=== PATIENT | female | born 1990 | race Caucasian/White ===

== ENCOUNTER 2022-05-05 06:01 | Inpatient (IN) | payer BC ==
[2022-05-05] MEDS ORDERED: Celecoxib 200 MG Cap PO ONE (06:30)
[2022-05-05] MEDS ORDERED: Scopolamine 1.5 MG Transdermal Patch TOP SCH (07:00)
[2022-05-05] MEDS ORDERED: Acetaminophen 500 MG Tab PO ONE (07:00)
[2022-05-05] MEDS ORDERED: cefOXitin 2 GM in Sodium Chloride 0.9% 50 ML IV ONE (07:00)
[2022-05-05] MEDS ORDERED: Dextrose 5%-Lactated Ringers 1,000 ML IV SCH (07:00)
[2022-05-05] MEDS ORDERED: cefOXitin 2 GM Vial ONE (07:01)
[2022-05-05 07:02] LABS: ESTIMATED GFR 78 mL/min (>60)
[2022-05-05] MEDS ORDERED: Succinylcholine 200 MG/10 ML MDV ONE (07:35)
[2022-05-05] MEDS ORDERED: Dexamethasone 4 MG/ML SDV ONE (07:35)
[2022-05-05] MEDS ORDERED: Propofol 200 MG/20 ML SDV ONE (07:35)
[2022-05-05] MEDS ORDERED: Neostigmine Methylsulfate 1 MG/ML 5 ML Syringe ONE (07:35)
[2022-05-05] MEDS ORDERED: Rocuronium 50 MG/5 ML Vial ONE ×2 (07:35→09:05)
[2022-05-05] MEDS ORDERED: Ondansetron 4 MG/2 ML SDV ONE (07:35)
[2022-05-05] MEDS ORDERED: Glycopyrrolate 0.2 MG/ML 5 ML MDV ONE (07:35)
[2022-05-05] MEDS ORDERED: fentaNYL 250 MCG/5 ML SDV ONE (08:55)
[2022-05-05] MEDS ORDERED: Labetalol 20 MG/4 ML Syringe ONE (10:05)
[2022-05-05] MEDS ORDERED: Glucagon,Human Recombinant 1 MG Vial IM PRN ×2 (11:46→13:00)
[2022-05-05] MEDS ORDERED: 50% Dextrose in Water 50 ML Syringe IVPUSH PRN ×2 (11:46→13:00)
[2022-05-05] MEDS ORDERED: fentaNYL 50 MCG/ML SDV IVPUSH ONE (11:51)
[2022-05-05] MEDS ORDERED: hydrOXYzine HCL 100 MG/2 ML SDV IM ONE (11:51)
[2022-05-05] MEDS ORDERED: Insulin Lispro 100 Unit/ML 3 ML KwikPen SUBCUT ONE (12:00)
[2022-05-05] MEDS ORDERED: Cyclobenzaprine 10 MG Tab PO PRN (12:51)
[2022-05-05] MEDS ORDERED: traMADol 50 MG Tab PO PRN (13:00)
[2022-05-05] MEDS ORDERED: hydrOXYzine HCL 100 MG/2 ML SDV IM PRN (13:00)
[2022-05-05] MEDS ORDERED: HYDROmorphone 1 MG/ML Syringe IV PRN (13:00)
[2022-05-05] MEDS ORDERED: Labetalol 20 MG/4 ML Syringe IVPUSH PRN (13:00)
[2022-05-05] MEDS ORDERED: diphenhydrAMINE 50 MG/ML SDV IVPUSH PRN (13:00)
[2022-05-05] MEDS ORDERED: Metoclopramide 10 MG/2 ML SDV IVPUSH PRN (13:00)
[2022-05-05] MEDS ORDERED: HYDROmorphone 0.5 MG/0.5 ML Syringe IVPUSH PRN (13:00)
[2022-05-05] MEDS ORDERED: oxyCODONE 5 MG Tab PO PRN (13:00)
[2022-05-05] MEDS ORDERED: Acetaminophen 500 MG Tab PO PRN (13:00)
[2022-05-05] MEDS ORDERED: Ondansetron 4 MG/2 ML SDV IVPUSH PRN (13:00)
[2022-05-05] MEDS: Lactated Ringers 1,000 ML IV SCH (13:57)
[2022-05-05] MEDS ORDERED: Pantoprazole 40 MG Vial IVPUSH SCH (14:00)
[2022-05-05] MEDS: Heparin Sodium 5,000 Units/ML Vial SUBCUT SCH ×2 (15:16→23:01)
[2022-05-05] MEDS ORDERED: Ketamine 500 MG/5 ML MDV IV SCH (16:00)
[2022-05-05] MEDS ORDERED: Ketamine 19 MG in Sodium Chloride 0.9% 19.81 ML IV SCH (16:00)
[2022-05-05] MEDS: MVI, Adult with Vitamin K 10 ML, Thiamine 200 MG, Zinc/Copper/Manganese/Selenium 1 ML i... IV SCH ×4 (16:36)
[2022-05-05] MEDS: cefOXitin 2 GM in Sodium Chloride 0.9% 50 ML IV SCH ×2 (16:38→22:01)
[2022-05-05] MEDS: Acetaminophen 500 MG Tab PO SCH ×2 (16:40→23:02)
[2022-05-05] MEDS: Insulin Lispro 100 Unit/ML 3 ML KwikPen SUBCUT SCH ×2 (16:41→21:58)
[2022-05-05] MEDS: Lisinopril 10 MG Tab PO SCH (21:59)
[2022-05-05] MEDS: atorvaSTATin 20 MG Tab PO SCH (22:00)
[2022-05-06] MEDS ORDERED: Iopamidol 612 MG/ML 50 ML SDV PO STA (02:42)
[2022-05-06] MEDS: cefOXitin 2 GM in Sodium Chloride 0.9% 50 ML IV SCH ×4 (03:43→22:54)
[2022-05-06] MEDS: Insulin Lispro 100 Unit/ML 3 ML KwikPen SUBCUT SCH ×4 (04:38→22:37)
[2022-05-06] MEDS ORDERED: Ondansetron 4 MG Tab.DIS PO PRN (07:40)
[2022-05-06] MEDS: Heparin Sodium 5,000 Units/ML Vial SUBCUT SCH ×3 (08:00→23:01)
[2022-05-06] MEDS: Acetaminophen 500 MG Tab PO SCH ×3 (08:00→23:00)
[2022-05-06] MEDS: buPROPion 150 MG Tab.ER PO SCH (08:01)
[2022-05-06] MEDS: Celecoxib 200 MG Cap PO SCH ×2 (08:01→21:34)
[2022-05-06] MEDS: Metoprolol Succinate 25 MG Tab.ER PO SCH (08:01)
[2022-05-06] MEDS: SCOPOLAMINE PATCH CHECK TOP SCH (08:01)
[2022-05-06] MEDS: Lactated Ringers 1,000 ML IV SCH (10:39)
[2022-05-06] MEDS ORDERED: Pantoprazole 40 MG Tab.CR PO SCH (11:30)
[2022-05-06] MEDS ORDERED: Calcium Carbonate 500 MG Tab.Chew PO PRN (14:18)
[2022-05-06] MEDS: MVI, Adult with Vitamin K 10 ML, Thiamine 200 MG, Zinc/Copper/Manganese/Selenium 1 ML i... IV SCH ×4 (16:09)
[2022-05-06] MEDS: Pantoprazole 40 MG Tab.CR PO SCH (16:12)
[2022-05-06] MEDS: Lisinopril 10 MG Tab PO SCH (21:34)
[2022-05-06] MEDS: atorvaSTATin 20 MG Tab PO SCH (21:34)
[2022-05-07] MEDS: Insulin Lispro 100 Unit/ML 3 ML KwikPen SUBCUT SCH (04:20)
[2022-05-07] MEDS: Acetaminophen 500 MG Tab PO SCH (07:10)
[2022-05-07] MEDS: Pantoprazole 40 MG Tab.CR PO SCH (07:10)
[2022-05-07] MEDS: Heparin Sodium 5,000 Units/ML Vial SUBCUT SCH (07:11)
[2022-05-07] MEDS: Metoprolol Succinate 25 MG Tab.ER PO SCH (08:06)
[2022-05-07] MEDS: buPROPion 150 MG Tab.ER PO SCH (08:06)
[2022-05-07] MEDS: SCOPOLAMINE PATCH CHECK TOP SCH (08:06)
[2022-05-07] MEDS: Celecoxib 200 MG Cap PO SCH (08:06)
[2022-05-07] MEDS ORDERED: Cyanocobalamin (Vitamin B12) 1,000 MCG/ML SDV IM ONE (09:00)
== END 2022-05-07 08:43 | disposition home or self-care (01) | DRG 403 ==
LOC: JP.MS 06:01
PROVIDERS: ADMIT Surgery; ATTEND Surgery
PROC: 0D194ZB Bypass Duodenum to Ileum, Percutaneous Endoscopic Approach (ICD-10-PCS; principal; 2022-05-05)
PROC: 0FB24ZX Excision of Left Lobe Liver, Percutaneous Endoscopic Approach, Diagnostic (ICD-10-PCS; 2022-05-05)
PROC: 0BQT4ZZ Repair Diaphragm, Percutaneous Endoscopic Approach (ICD-10-PCS; 2022-05-05)
DX: E66.01 Morbid (severe) obesity due to excess calories (principal); Z68.43 Body mass index [BMI] 50.0-59.9, adult; E11.9 Type 2 diabetes mellitus without complications; G47.33 Obstructive sleep apnea (adult) (pediatric); I10 Essential (primary) hypertension; E28.2 Polycystic ovarian syndrome; R16.0 Hepatomegaly, not elsewhere classified; K44.9 Diaphragmatic hernia without obstruction or gangrene; Z87.891 Personal history of nicotine dependence; Z90.49 Acquired absence of other specified parts of digestive tract; F41.9 Anxiety disorder, unspecified; Z88.8 Allergy status to other drugs, medicaments and biological substances
CPT/HCPCS: 36415; 74240; 74240-26; 80053; 82728; 82947; 83735; 83880; 84100; 84703; 85027; 86850; 86900; 86901; 93005; A9270-GY; C9113; J0171; J0330; J0694; J1100; J1644; J1815; J2405; J2704; J2710; J2795; J3010; J3410; J3411; J3420; J3490; J7120; J7121; Q0162; Q9967